=== PATIENT | male | born 1950 | race Caucasian/White ===

== ENCOUNTER 2021-06-22 09:40 | Observation (INO) ==
[2021-06-22] MEDS ORDERED: Aspirin 81 MG TAB.CHEW PO ONE (09:55)
[2021-06-22] MEDS ORDERED: 0.9 % Sodium Chloride 500 ML IVC ONE (09:55)
[2021-06-22] MEDS ORDERED: *HR* Metoprolol 5 MG/5 ML VIAL IVP ONE (09:57)
[2021-06-22 10:13] LABS: Basophils # 0.1 K/mcL (0.0-0.2); Basophils % 0.9 %; Eosinophils # 0.2 K/mcL (0.0-0.6); Eosinophils % 1.7 %; Hematocrit 43.3 % (37.5-50.1); Immature Granulocytes % 0.2 % (0-4); Lymphocytes # 2.6 K/mcL (0.6-4.6); Lymphocytes % 29.1 %; Mean Corpuscular Hemoglobin 22.6 pg (28.0-33.3); Mean Corpuscular Volume 75.2 fL (83.0-100.0); Mean Platelet Volume 10.1 fL (9.4-12.4); Monocytes # 1.1 K/mcL (0.0-1.3); Monocytes % 12.5 %; Platelet Count 288 K/mcL (140-400); Red Blood Count 5.76 M/mcL (4.19-5.50); Red Cell Distribution Width 17.9 % (11.5-14.5); Segmented Neutrophils % 55.6 %
[2021-06-22 10:22] LABS: INR 1.1; Prothrombin Time 12.6 Seconds (9.4-12.1)
[2021-06-22 10:25] LABS: Activated Partial Thrombo Time 31.6 Seconds (26.0-36.0)
[2021-06-22 10:45] LABS: BUN/Creatinine Ratio 15 (6-26); Blood Urea Nitrogen 18 mg/dL (8-23); Calcium 8.9 mg/dL (8.6-10.3); Carbon Dioxide 27 mEq/L (23-29); Chloride 100 mEq/L (98-107); Glucose 125 mg/dL (70-105); Osmolality,Calculated 281 (280-300); Potassium 4.2 mEq/L (3.5-5.1); Sodium 134 mEq/L (136-145); Troponin I 0.05 ng/mL (< 0.04); eGFR For African Americans > 60 (> 60); eGFR For Non-African Americans > 60 (> 60)
[2021-06-22] MEDS ORDERED: Acetaminophen 325 MG TABLET PO PRN (12:25)
[2021-06-22] MEDS ORDERED: Ondansetron 4 MG/2 ML VIAL IVP PRN (12:25)
[2021-06-22] MEDS ORDERED: Perflutren Lipid Microsphere 1.3 ML in 0.9 % Sodium Chloride 8.7 ML IVP PRN (12:27)
[2021-06-22] MEDS ORDERED: Metoprolol XL (24 HR) Succ 25 MG TAB.ER.24H PO SCH (12:30)
[2021-06-22] MEDS ORDERED: Metoprolol XL (24 HR) Succ 50 MG TAB.ER.24H PO SCH (12:30)
[2021-06-22] MEDS ORDERED: D5% in Water 1,000 ML IVC PRN (12:37)
[2021-06-22] MEDS ORDERED: Dextrose Gel 15 GM/37.5 ML TUBE PO PRN ×2 (12:37)
[2021-06-22] MEDS ORDERED: *HR* Dextrose 50 % in Water (Syg) 50 ML SYRINGE IVP PRN (12:37)
[2021-06-22 13:07] LABS: Thyroid Stimulating Hormone 1.416 mcIU/mL (0.340-5.600)
[2021-06-22] MEDS: Apixaban 5 MG TABLET PO SCH ×2 (14:30→19:52)
[2021-06-22] MEDS: Insulin LISPRO 300 UNITS/3 ML VIAL SUBQ SCH (16:55)
[2021-06-22] MEDS ORDERED: Insulin LISPRO 300 UNITS/3 ML VIAL SUBQ SCH (21:00)
[2021-06-23 01:51] LABS: BUN/Creatinine Ratio 17 (6-26); Blood Urea Nitrogen 17 mg/dL (8-23); Calcium 8.2 mg/dL (8.6-10.3); Carbon Dioxide 23 mEq/L (23-29); Chloride 104 mEq/L (98-107); Chol/HDL Ratio 2.5 (0-4.9); Cholesterol 89 mg/dL (< 200); Glucose 99 mg/dL (70-105); HDL Cholesterol 36 mg/dL (40-59); LDL Cholesterol,Calculated 40 mg/dL (< 100); Osmolality,Calculated 282 (280-300); Potassium 3.9 mEq/L (3.5-5.1); Sodium 135 mEq/L (136-145); Triglycerides 63 mg/dL (< 150); eGFR For African Americans > 60 (> 60); eGFR For Non-African Americans > 60 (> 60)
[2021-06-23] MEDS: Apixaban 5 MG TABLET PO SCH (07:45)
[2021-06-23] MEDS: Insulin LISPRO 300 UNITS/3 ML VIAL SUBQ SCH ×2 (07:45→11:31)
[2021-06-23] MEDS ORDERED: Metoprolol XL (24 HR) Succ 25 MG TAB.ER.24H PO SCH (09:00)
[2021-06-23 10:28] VITALS: O2SAT 95
[2021-06-23 14:10] VITALS: BP 132/82; PULSE 87; TEMP 99
[2021-06-24] MEDS ORDERED: Aspirin Enteric Coated 81 MG Tablet PO SCH (09:00)
== END 2021-06-23 15:08 | disposition home or self-care (01) ==
LOC: 3BNU 09:40 → EMEROOARM 09:40 → SUATTDRO 13:42 → 3BNU 13:59
PROVIDERS: ADMIT Internal Medicine; ATTEND Internal Medicine